=== PATIENT | female | born 1990 | race Two or more races ===

== ENCOUNTER 2024-11-24 05:16 | Inpatient (IN) | payer BC, SELFPAY ==
--- NOTE | 2024-11-20 21:25 | ESHP_ITS ---
RE: NADIA GUNTER : 1990 DATE OF ADMISSION: 11/24/2024 DATE OF SURGERY: 11/24/2024 HISTORY OF PRESENT ILLNESS: This is a 34-year-old G2, P1-0-0-1 with due date of 12/01/2024 with intrauterine at 39 weeks who presents for repeat delivery. She denies any leaking or bleeding. She reports normal movement. She has occasional contractions. ALLERGIES: CLINDAMYCIN. MEDICATIONS: 1. multivitamin 1 p.o. daily. 2. Levothyroxine 75 mg 1 p.o. daily. PAST MEDICAL HISTORY: Hypothyroidism, RH negative, delivery. SOCIAL HISTORY: She is . She denies any alcohol, drug use or smoking. OBSTETRIC HISTORY: In 2020, 40-week delivery 8 pounds, 15 ounce male. No complications. PAST SURGICAL HISTORY: delivery in 2020. REVIEW OF SYSTEMS: She denies any chest pain, palpitations, cough, fever, shortness of breath or lower extremity pain. PHYSICAL EXAMINATION: VITAL SIGNS: Blood pressure 122/72, heart rate 88, respirations 18, temperature 98.6. HEENT: Oropharynx and sclerae are clear. LUNGS: Clear to auscultation bilaterally. HEART: Regular rate and rhythm. ABDOMEN: Gravid, term size. Old Pfannenstiel scar noted. EXTREMITIES: Nontender. SKIN: No gross rashes or lesions. NEUROLOGIC: No focal deficits. ASSESSMENT: Intrauterine at 39 weeks. Previous delivery, elects a repeat delivery. PLAN: Repeat delivery. Informed consent was obtained. The patient was made aware of the risks, complications, alternatives and benefits of the proposed procedure and she agrees. DT: 18:41:16 TT: 21:24:00 Ref: [id number] - TID: [id number] MTDD
[2024-11-23 09:06] LABS: Basophils # (Auto) 0.0 Thou/mm3 (0.0-0.2); Basophils % (Auto) 1 % (0-2.5); Eosinophils # (Auto) 0.1 Thou/mm3 (0.0-0.5); Eosinophils % (Auto) 1 % (0-10); Hematocrit 40.1 % (36.0-46.0); Hemoglobin 14.3 g/dL (12.0-16.0); Immature Granulocytes Auto 0.03 Thou/mm3 (0.00-0.00); Lymphocytes # (Auto) 2.7 Thou/mm3 (1.0-4.8); Lymphocytes % (Auto) 33 % (10-50); Mean Corpuscular HGB Conc 35.7 g/dl (31.0-37.0); Mean Corpuscular Hemoglobin 34.5 pg (25.0-35.0); Mean Corpuscular Volume 97 fL (80-100); Monocytes # (Auto) 0.6 Thou/mm3 (0.0-0.8); Monocytes % (Auto) 8 % (0-12); Neutrophils # (Auto) 4.7 Thou/mm3 (1.8-7.7); Neutrophils % (Auto) 58 % (37-80); Nucleated Red Blood Cell # 0.00 Thou/mm3 (0.00-0.00); Nucleated Red Blood Cell % 0 /100 WBC (0); Platelet Count 163 Thou/mm3 (140-440); RDW Standard Deviation 47.2 fL (36.4-46.3); Red Blood Count 4.15 Miln/mm3 (4.00-5.20); White Blood Count 8.1 Thou/mm3 (3.6-11.0)
[2024-11-23 09:38] LABS: Alanine Aminotransferase 25 U/L (10-49); Albumin, Serum 3.9 gm/dL (3.5-5.0); Albumin/Globulin Ratio 1.4 (1.2-2.2); Alkaline Phosphatase 151 U/L (46-116); Anion Gap 11 (7-16); Aspartate Amino Transferase 31 U/L (0-34); BUN/Creatinine Ratio 12 Ratio (12-20); Bilirubin,Total 0.8 mg/dL (0.3-1.2); Blood Urea Nitrogen 6 mg/dL (9-23); Calcium 9.6 mg/dL (8.3-10.6); Calcium (Corrected) 9.7 mg/dL (8.5-10.1); Carbon Dioxide 19.7 mMol/L (20.0-31.0); Chloride 105 mMol/L (98-107); Creatinine (Component) 0.5 mg/dL (0.6-1.3); Globulin 2.8 gm/dL (2.3-3.5); Glucose 81 mg/dL (74-106); Osmolality,Calculated 268 (275-295); Potassium 4.0 mMol/L (3.4-5.1); Sodium 136 mMol/L (136-145); Total Protein 6.7 gm/dL (5.7-8.2); eGFR > 60 See Note
[2024-11-23 09:52] LABS: Syphilis Nonreactive (Nonreactive)
[2024-11-23 10:20] LABS: INR 0.9 (0.9-1.3); Partial Thromboplastin Time 26.0 Seconds (22.0-36.0); Prothrombin Time 10.1 Seconds (9.0-12.2)
[2024-11-24] VITALS (44 sets, daily range): BP systolic 0–138; BP diastolic 0–91; PULSE 81–121; RESP 14–20; TEMP 36.7–36.9; O2SAT 96–99; BMI 40.7
[2024-11-24] MEDS: ceFAZolin/D5W 2 GM IV 2 GM/100 ML BAG IV (07:19)
[2024-11-24] MEDS: FAMOTIDINE INJ 10 MG/ML VIAL 2 ML 20 MG IV (07:19)
--- NOTE | 2024-11-24 08:31 | OBDSUM_ITS ---
Data ([place]) Data Hx Section: No : 2 Term: 0 : 0 Livin Abortions: Spontaneous & Theraputic: 0 Delivery Data ([facility]) Labor Data Induction/Augmentation Agent: None ROM date: 11/24/24 ROM time: 08:02 Amniotic membrane rupture type: Artificial Amniotic fluid description: Clear Delivery Data EDC: 12/01/24 EDC calculated by:: LMP/early US confirmation delivery date: 11/24/24 [place] delivery time: 08:03 Gestational age (weeks): 39 Gestational age (days): 1 Placenta delivery date: 11/24/24 Placenta delivery time: 08:04 Delivered by: [place] Delivery nurse: Alissa Griffith nurse: My Griffin Support person(s) at delivery: Other staff at delivery: Dr. Arroyo Delivery Method Delivery method: Low Transverse Presentation: Vertex Anesthesia Type Anesthesia Type: None Placenta Placenta delivery description: Manual Removal Cord blood sent to lab: Yes cord blood collection: Cord Blood Type Episiotomy Episiotomy description: None EBL Estimated blood loss (ml): 400 Umbilical Cord cord description: 3 Vessels Additional Procedures None Complications Complications: None Data ([place]) [place] Data 's gender: Female Identification band number: [id number] weight (gms): 7 lb 6.168 oz Weight (pounds): 7 lbs and 6.2 ozs [place] length: 19.75 in 1 minute: 9 5 minutes: 9
--- NOTE | 2024-11-24 08:31 | ESDS_ITS ---
DS: Providers Provider Date of admission: 11/24/24 05:16 Primary care physician: Physician No Primary/Family Admitting Provider: Mark Betancourt MD Attending Provider on Admission: Mark Betancourt MD Attending Provider on DC: Mark Betancourt MD Discharging Provider: aMrk Betancourt MD DS: Diagnosis Discharge Diagnosis (1) delivery delivered: Status: Acute Problem List Completed Was Problem List Reviewed/Reconciled?: Yes Summary/Hosp Course Peripartum Data Delivery Method: Low Transverse Episiotomy Description: None Procedures: Procedures Operation Date: 11/24/24 07:45 Actual Procedure Side Surgeon p in OB Mark Betancourt MD [place] 1: Gender: Female Disposition of : home Time Spent with Patient Time attestation: Total time spent providing and/or coordinating discharge services: Exam Vital Signs Pulse BP Pulse Ox 107 H 0/0 L 98 11/24/24 07:06 11/24/24 07:36 11/24/24 07:35 Discharge Plan Plan Patient Disposition: HOME (Self Care) Patient condition on transfer: Stable Prescriptions/Referrals Prescriptions/Med Rec: New ibuprofen 600 mg tablet 600 mg PO Q6H PRN (Reason: pain) Qty: 30 0RF Continued levothyroxine 88 mcg Tablet 75 mcg PO QDAY prenat.vits,reed,[id number]-[id number] Tablet 1 tab PO QDAY docusate sodium [Colace] 100 mg capsule 100 mg PO BID Qty: 60 0RF Referrals: No Primary/Family,Physician [Primary Care Provider] - Patient/Caregiver Discharge Instructions Discharge Activity: activity as tolerated Other Discharge Activity Instructions:: Follow up office 1 week. Education Materials: C Section Dc Print Language: Montenegrin Stand Alone Forms: Jayla Award Info., Patient Portal Info Letter Planned Discharge Date 11/26/24
--- NOTE | 2024-11-24 08:34 | PD.GYNPROC ---
Operative Note - [employer] Procedure Date of procedure: 11/24/24 Procedure Performed: Repeat Low Transverse Delivery via Pfanenstiel skin incision. Indication: IUP 39w0d Prior C/S Desires repeat C/S Pre-Op diagnosis: IUP 39w0d Prior C/S Desires repeat C/S Post-Op diagnosis: IUP 39w0d Prior C/S Desires repeat C/S Anesthesia type: Spinal Procedure description: After proper informed consent was obtained and the patient was made aware of the risks, complications, alternatives and benefits of the proposed procedure she was taken to the operating room where she underwent induction of spinal anesthesia. She was prepped and draped in the usual sterile fashion. A timeout was performed.? A Pfannenstiel skin incision was made with the scalpel and carried through to the underlying layer of fascia with the Bovie. The fascia was nicked in the midline incision and the incision was extended bilaterally with the Bovie. The inferior aspect of the fascial incision was grasped with Taz clamps elevated and the underlying rectus muscle dissected off with the Bovie. The superior aspect the fascial incision was grasped with Taz clamps elevated and the underlying rectus muscle dissected off with the Bovie. The rectus muscles were in the midline. The peritoneum was grasped between 2 Mccarty clamps and entered sharply with the Metzenbaum scissors. The peritoneum was extended superiorly and inferiorly with good visualization of the bladder. The vesicouterine peritoneum was incised transversely and the bladder flap created digitally. A Sneha blade was inserted. A low transverse incision was made in the uterus with a scapel and the incision was extended digitally. The 's head delivered and the mouth and nose were suctioned with the bulb suction. The shoulder and body delivered atraumatically. The cord was clamped after 30 second delayed cord clamping and the cord was cut.? The infant was handed off to the waiting Pediatric staff, cord blood was collected for lab testing. The placenta was removed complete and intact. The uterus was exteriorized and cleared of all clots and debris. The uterine incision was closed with #1-0 chromic catgut suture in a running interlocking fashion. A second layer of the same suture was used to imbricate the first layer and obtain excellent hemostasis. The vesicouterine peritoneum was closed with 2-0 chromic catgut suture in a running fashion. The firm uterus was returned to the abdomen. The gutters were cleared of all clots and debris. The peritoneum was closed with 0 chromic catgut suture in running fashion. The rectus muscle was closed with 0 chromic catgut suture. The fascia was closed with 0 Vicryl beginning at each angle and ending in the center in a running fashion. The subcutaneous tissue was irrigated with warmed normal saline solution and found to be hemostatic. The subcutaneous tissue was closed with 2-0 chromic catgut suture in a running fashion. The skin was closed with 4-0 Monocryl. A Dermabond Prineo dressing was applied and a sterile pressure dressing was applied.? She tolerated the procedure well. Counts were correct. I discussed with the patient the nature of her condition, intraoperative findings and expectation for recovery all? questions answered. Specimen: none Estimated blood loss (ml): 400 Findings: Live female APGARS 9/9 Clear amniotic fluid. Placenta removed complete and intact. Normal appearing uterus, ovaries and tubes. Complications: none Surgical staff Operation Date: 11/24/24 07:45 Case Staff BUSINESS ARCHITECT: Fabrizio Martinez RNcorrectional security officer: Manuel Sarah Diagnosis Discharge Diagnosis (1) delivery delivered: Status: Acute Problem List Completed Was Problem List Reviewed/Reconciled?: Yes
[2024-11-24] MEDS: OXYTOCIN in NS 20 units 20 UNIT/1,000 ML BAG 125 UNIT IV ×2 (10:20→19:14)
[2024-11-24 11:58] LABS: Basophils # (Auto) 0.0 Thou/mm3 (0.0-0.2); Basophils % (Auto) 0 % (0-2.5); Eosinophils # (Auto) 0.0 Thou/mm3 (0.0-0.5); Eosinophils % (Auto) 0 % (0-10); Hematocrit 37.3 % (36.0-46.0); Hemoglobin 13.2 g/dL (12.0-16.0); Immature Granulocytes Auto 0.02 Thou/mm3 (0.00-0.00); Lymphocytes # (Auto) 2.1 Thou/mm3 (1.0-4.8); Lymphocytes % (Auto) 23 % (10-50); Mean Corpuscular HGB Conc 35.4 g/dl (31.0-37.0); Mean Corpuscular Hemoglobin 34.8 pg (25.0-35.0); Mean Corpuscular Volume 98 fL (80-100); Monocytes # (Auto) 0.4 Thou/mm3 (0.0-0.8); Monocytes % (Auto) 5 % (0-12); Neutrophils # (Auto) 6.5 Thou/mm3 (1.8-7.7); Neutrophils % (Auto) 71 % (37-80); Nucleated Red Blood Cell # 0.00 Thou/mm3 (0.00-0.00); Nucleated Red Blood Cell % 0 /100 WBC (0); Platelet Count 145 Thou/mm3 (140-440); RDW Standard Deviation 47.9 fL (36.4-46.3); Red Blood Count 3.79 Miln/mm3 (4.00-5.20); White Blood Count 9.2 Thou/mm3 (3.6-11.0)
--- NOTE | 2024-11-24 18:38 | PC.NURSE ---
1834 Called MD Ferro to inform him of pts heart rate in the 120s, all other vitals are well, urine output is good, dr stated to continue to monitor.
[2024-11-24] MEDS: KETOROLAC INJ 30 MG/ML VIAL IVP (21:01)
[2024-11-24] MEDS: RINGERS LACTATED 1000 ML 1,000 ML 100 ML IV (23:40)
[2024-11-25] VITALS: PULSE 111; RESP 16; TEMP 36.7; O2SAT 100
[2024-11-25 04:00] VITALS: BP 106/72; PULSE 107; RESP 16; TEMP 36.8
--- NOTE | 2024-11-25 07:29 | ESPR_ITS ---
Subjective Subjective Interval history: Delivery type: Repeat Patient doing well this morning. No acute complaints. Ambulating, tolerating p.o. and voiding without difficulty. HTN/Pre-Eclampsia screen: No chest pain, shortness of breath, headache, visual changes, epigastric or right upper quadrant pain. Breast-feeding, lochia diminishing. Bowel: Flatus+/ BM+ Exam Vital Signs Temp Pulse Resp BP Pulse Ox O2 Del Method 98.2 F 107 H 16 106/72 100 Room Air 11/25/24 04:00 11/25/24 04:00 11/25/24 04:00 11/25/24 04:00 11/25/24 00:00 11/25/24 04:00 Constitutional Constitutional: no acute distress Routine HEENT Exam Head: Present normocephalic and atraumatic Eye: Present EOMI and PERRL ENT: Present mucous membranes moist Routine Neck Exam Neck: Present supple and trachea midline Routine Respiratory Exam Respiratory: Present chest non-tender, lungs clear, normal breath sounds and no resp distress Routine Cardiovascular Exam Cardiovascular: Present RRR Routine Abdominal Exam Abdominal: Present soft and normoactive bowel sounds Routine Extremities Exam Extremities: Present full ROM Routine Skin Exam Skin: Present intact, dry and warm Routine Neurological Exam Neurological: Present alert, oriented X3 and CN II-XII intact Routine Psychiatric Exam Psychiatric: Present normal affect and normal thought process Objective Labs 11/24/24 11:33 11/23/24 08:38 Labs: Laboratory Results - last 24 hr 11/24/24 11:33 WBC 9.2 RBC 3.79 L Hgb 13.2 Hct 37.3 MCV 98 MCH 34.8 MCHC 35.4 RDW Std Deviation 47.9 H Plt Count 145 Neut % (Auto) 71 Lymph % (Auto) 23 [place] % (Auto) 5 Eos % (Auto) 0 Baso % (Auto) 0 Neut # (Auto) 6.5 Lymph # (Auto) 2.1 [place] # (Auto) 0.4 Eos # (Auto) 0.0 Baso # (Auto) 0.0 Immature Gran # (Auto) 0.02 H Absolute Nucleated RBC 0.00 Immature Gran % 0 Nucleated RBC % 0 Rho(D) IG Studies Ready Maternal Bleed Negative Assessment & Plan Problem List (1) delivery delivered: Status: Acute Assessment and plan: 1. Continue routine /post-op care 2. Labs reviewed, cbc appropriate 3. Remove dressing/Lucas 4. Encourage to ambulate, shower 5. Encourage PO intake, breast feeding Time Spent With Patient Time: Total time spent is greater than 50% in coordination of care (as documented) at patient's floor/unit and/or counseling patient: Time with patient: less than 15 minutes
--- NOTE | 2024-11-25 07:30 | ESDS_ITS ---
DS: Providers Provider Date of admission: 11/24/24 05:16 Primary care physician: Physician No Primary/Family Admitting Provider: Mark Betancourt MD Attending Provider on Admission: Nolan Ferro MD Consults: 11/24/24 08:49 Referral Routine Comment: Attending Provider on DC: Nolan Ferro MD Discharging Provider: Nolan Ferro MD DS: Diagnosis Discharge Diagnosis (1) delivery delivered: Status: Acute (2) Encounter for care of lactating mother: Status: Acute (3) care following delivery: Status: Acute Problem List Completed Was Problem List Reviewed/Reconciled?: Yes Summary/Hosp Course Peripartum Data Delivery Method: Low Transverse Episiotomy Description: None Procedures: Procedures Operation Date: 11/24/24 07:45 Actual Procedure Side Surgeon p in OB Mark Betancourt MD Time Spent with Patient Time attestation: Total time spent providing and/or coordinating discharge services: Exam Vital Signs Temp Pulse Resp BP Pulse Ox O2 Del Method 98.2 F 107 H 16 106/72 100 Room Air 11/25/24 04:00 11/25/24 04:00 11/25/24 04:00 11/25/24 04:00 11/25/24 00:00 11/25/24 04:00 Discharge Plan Plan Patient Disposition: HOME (Self Care) Patient condition on transfer: Stable Prescriptions/Referrals Prescriptions/Med Rec: New hydrocodone-acetaminophen 5-325 mg Tablet 1 tab PO Q6HR MDD 4 PRN (Reason: Patient rated pain 9 to 10) 5 Days Qty: 20 0RF ibuprofen 400 mg Tablet 800 mg PO Q8HR PRN (Reason: Pain Scale 4-6 (Moderate) 10 Days Qty: 40 0RF Continued levothyroxine 88 mcg Tablet 75 mcg PO QDAY prenat.vits,reed,tso-[id number] Tablet 1 tab PO QDAY docusate sodium [Colace] 100 mg capsule 100 mg PO BID Qty: 60 0RF Referrals: No Primary/Family,Physician [Primary Care Provider] - Mark Betancourt MD [Physician] - Patient/Caregiver Discharge Instructions Discharge Activity: activity as tolerated Other Discharge Activity Instructions:: Follow up office 1 week. Education Materials: C Section Dc, After Delivery [place] Concerns, Breast Care After , After a , Nutrition While , Understanding Post Depression, : Caring for Yourself, Feel Healthy After Print Language: Kinyarwanda Stand Alone Forms: Jayla Mariee Info., Patient Portal Info Letter, DC from Surgery Planned Discharge Date 11/26/24
[2024-11-25] MEDS: LEVOTHYROXINE SODIUM 25 MCG TABLET 75 MCG PO (07:34)
[2024-11-25 08:35] VITALS: BP 116/81; PULSE 118; RESP 16; TEMP 37.2; O2SAT 97
[2024-11-25] MEDS: ENOXAPARIN SOD INJ 40 MG/0.4 ML SYRINGE SC (08:44)
[2024-11-25] MEDS: IBUPROFEN TAB 400 MG TABLET 800 MG PO (08:44)
[2024-11-25] MEDS: DOCUSATE SOD 100 MG CAPSULE PO (08:44)
[2024-11-25] MEDS: HYDROcodone/APAP 5/325 TABLET 1 TAB PO ×2 (15:53→22:56)
[2024-11-25 16:28] VITALS: BP 101/67; PULSE 105; RESP 16; TEMP 36.4
[2024-11-25 19:21] VITALS: BP 112/67; PULSE 106; RESP 18; TEMP 36.5; O2SAT 96
[2024-11-26 03:34] VITALS: BP 129/85; PULSE 104; RESP 16; TEMP 36.3; O2SAT 96
[2024-11-26] MEDS: IBUPROFEN TAB 400 MG TABLET 800 MG PO (07:02)
[2024-11-26 08:00] VITALS: BP 133/82; PULSE 84; RESP 19; TEMP 36.4; O2SAT 97
[2024-11-26] MEDS: ENOXAPARIN SOD INJ 40 MG/0.4 ML SYRINGE SC (08:25)
[2024-11-26] MEDS: DOCUSATE SOD 100 MG CAPSULE PO (08:25)
== END 2024-11-26 10:26 | disposition home or self-care (01) | DRG 788 ==
LOC: S4SX 06:43 → S4NX 08:05
PROVIDERS: Admitting Provider Specialist; Visit Provider Obstetrics & Gynecology
PROC: 10D00Z1 Extraction of Products of Conception, Low, Open Approach (ICD-10-PCS; CPT 59514; principal; 2024-11-24 07:30)
DX: O34.211 Maternal care for low transverse scar from previous cesarean delivery (principal); Z37.0 Single live birth; Z3A.39 39 weeks gestation of pregnancy; Z88.1 Allergy status to other antibiotic agents; O99.284 Endocrine, nutritional and metabolic diseases complicating childbirth; E03.9 Hypothyroidism, unspecified; Z79.899 Other long term (current) drug therapy
CPT/HCPCS: 36415; 59409; 80053; 85025; 85461; 85610; 85730; 86780; 86850; 86900; 86901; 94762; A4314; A4649; J0689; J1650; J1885; J2274; J2371; J2590; J2790; J3490; J7120; A9270; J2270

== ENCOUNTER → 2025-03-27 | Outpatient (CLI) | payer BC, SELFPAY ==
[2025-03-27 08:15] LABS: Collection Type, Urine Clean Catch
[2025-03-27 08:36] LABS: Basophils # (Auto) 0.0 Thou/mm3 (0.0-0.2); Basophils % (Auto) 1 % (0-2.5); Eosinophils # (Auto) 0.1 Thou/mm3 (0.0-0.5); Eosinophils % (Auto) 2 % (0-10); Hematocrit 41.3 % (36.0-46.0); Hemoglobin 14.0 g/dL (12.0-16.0); Immature Granulocytes Auto 0.01 Thou/mm3 (0.00-0.00); Lymphocytes # (Auto) 3.1 Thou/mm3 (1.0-4.8); Lymphocytes % (Auto) 48 % (10-50); Mean Corpuscular HGB Conc 33.9 g/dl (31.0-37.0); Mean Corpuscular Hemoglobin 33.5 pg (25.0-35.0); Mean Corpuscular Volume 99 fL (80-100); Monocytes # (Auto) 0.6 Thou/mm3 (0.0-0.8); Monocytes % (Auto) 9 % (0-12); Neutrophils # (Auto) 2.7 Thou/mm3 (1.8-7.7); Neutrophils % (Auto) 41 % (37-80); Nucleated Red Blood Cell # 0.00 Thou/mm3 (0.00-0.00); Nucleated Red Blood Cell % 0 /100 WBC (0); Platelet Count 294 Thou/mm3 (140-440); RDW Standard Deviation 44.0 fL (36.4-46.3); Red Blood Count 4.18 Miln/mm3 (4.00-5.20); White Blood Count 6.5 Thou/mm3 (3.6-11.0)
[2025-03-27 08:58] LABS: Bilirubin,Urine Negative (Negative); Blood,Urine Negative (Negative); Clarity,Urine Clear (Clear/Hazy); Color,Urine Lt-Yellow (Lt Yel-Yel); Culture Indicated,Urine Not Indicated; Glucose, Urine Negative (Negative); Ketones,Urine Negative (Negative); Leukocyte Esterase,Urine Negative (Negative); Nitrite,Urine Negative (Negative); PH,Urine 6.0 (5.0-7.0); Protein,Urine Negative (Neg - Trace); RBC,Urine 5 /hpf (0-3); Specific Gravity,Urine 1.021 (1.001-1.035); Squamous Epithelial Cell,Urine 3 /hpf (0-5); Urobilinogen,Urine Negative mg/dL (0.0-1.0); WBC,Urine 5 /hpf (0-5)
[2025-03-27 08:59] LABS: Alanine Aminotransferase 41 U/L (10-49); Albumin, Serum 4.5 gm/dL (3.5-5.0); Albumin/Globulin Ratio 2.0 (1.2-2.2); Alkaline Phosphatase 81 U/L (46-116); Anion Gap 10 (7-16); Aspartate Amino Transferase 33 U/L (0-34); BUN/Creatinine Ratio 16 Ratio (12-20); Bilirubin,Total 0.3 mg/dL (0.3-1.2); Blood Urea Nitrogen 8 mg/dL (9-23); Calcium 9.5 mg/dL (8.3-10.6); Calcium (Corrected) 9.5 mg/dL (8.5-10.1); Carbon Dioxide 22.9 mMol/L (20.0-31.0); Cardiac Risk Estimate 2.7 RATIO (3.7-5.6); Chloride 106 mMol/L (98-107); Cholesterol 166 mg/dL (132-200); Creatinine (Component) 0.5 mg/dL (0.6-1.3); Free T4 (Free Thyroxine) 1.50 ng/dL (0.89-1.76); Globulin 2.3 gm/dL (2.3-3.5); Glucose 104 mg/dL (74-106); HDL Cholesterol 61 mg/dL (40-60); LDL Cholesterol,Calculated 66 mg/dL (0-130); Osmolality,Calculated 275 (275-295); Potassium 3.8 mMol/L (3.4-5.1); Sodium 139 mMol/L (136-145); Thyroid Stimulating Hormone 0.88 uIU/mL (0.55-4.78); Total Protein 6.8 gm/dL (5.7-8.2); Triglycerides 195 mg/dL (30-150); eGFR > 60 See Note
[2025-03-27 09:03] LABS: T4 (Thyroxine) 11.8 mcg/dL (4.5-10.9)
[2025-03-27 09:05] LABS: Vitamin D 25 Hydroxy Total 22.9 ng/mL (7.3-40.2)
[2025-03-27 09:36] LABS: Glucose Estimated Average 103 mg/dL (80-131); Hemoglobin A1C 5.2 % Hgb (4.8-6.0)
[2025-03-30 06:34] LABS: T3,Total* 118 ng/dL (76-181); Thyroglobulin Antibodies* 1 IU/mL (< OR = 1); Thyroid Peroxidase Antibodies* 53 IU/mL (<9)
== END | disposition home or self-care (01) ==
PROVIDERS: PCP Nurse Practitioner Family; Referring Provider Nurse Practitioner Family; Visit Provider Nurse Practitioner Family
DX: Z00.00 Encounter for general adult medical examination without abnormal findings (principal); E55.9 Vitamin D deficiency, unspecified; N39.0 Urinary tract infection, site not specified; E11.9 Type 2 diabetes mellitus without complications; E03.9 Hypothyroidism, unspecified; Z79.899 Other long term (current) drug therapy; Z13.29 Encounter for screening for other suspected endocrine disorder; Z13.1 Encounter for screening for diabetes mellitus; Z13.0 Encounter for screening for diseases of the blood and blood-forming organs and certain disorders involving the immune mechanism; Z13.220 Encounter for screening for lipoid disorders; Z13.89 Encounter for screening for other disorder
CPT/HCPCS: 36415; 80053; 80061; 81001; 82306; 83036; 84436; 84439; 84443; 84480; 85025; 86376; 86800